=== PATIENT | male | born 1990 | race Caucasian/White ===

== ENCOUNTER 2022-04-27 10:37 | Emergency (ER) | payer OTHER ==
--- OUTSIDE RECORDS SUMMARY | 2022-04-27 10:41 | XMS REPORT | Continuity of Care Document ---
:1990 Author Organization [facility] t Address [address] [place] [address] Care Team Providers Name Role Phone Pcp, Patient Does Not Have A Primary Care Physician +[id number] MAY QUINTANILLA Attending Clinician Unavailable Randee JOHNS, Gina Morales Attending Clinician Unavailable May Quintanilla MD Attending Clinician Doctor Unassigned, [place] Attending Clinician Unavailable Elzbieta Alicea LVN Attending Clinician Binta Romero Attending Clinician Jd Garcia MD Attending Clinician Adelfo Cabrera MD Attending Clinician ADELFO CABRERA Attending Clinician Unavailable Adelfo Cabrera MD Admitting Clinician ADELFO CABRERA Admitting Clinician Unavailable Payers Payer Name Policy Type Policy Number Effective Date Expiration Date S vicenta [employer] PAID BY [id number] 2022 EMPLOYER - GENERIC 00:00:00 Problems Condition Condition Condition Status Onset Resolution Last Treating Co mments Source Name Details Category Date Date Treatment Clinician Date Left elbow Left elbow Disease Active 2021-05 U nivers pain pain 1-29 ity of 00:00: [place] [address] Medical Branch Decreased Decreased Disease Active 2021-05 Uni vers range of range of 1-29 [place] of [place] elbow [place] elbow 00 Me dical Branch Effusion Effusion Disease Active 2021-05 Unive rs of left of left 1-17 ity of elbow elbow 00:00: [place] 00 Medical Branch Obesity Obesity Disease Active 2021-05 Univers (BMI (BMI 1-17 ity of 30-39.9) 30-39.9) 00:00: [place] 00 Medical Branch Allergies, Adverse Reactions, Alerts Allergy Allergy Status Severity Reaction(s) Onset Inactive Treating Comm ents Source Name Type Date Date Clinician NO KNOWN Drug Active Univers ALLERGIE Class ity of S [place] [facility] Social History Social Habit Start Date Stop Date Quantity Comments Source Exposure to 2022-04-16 2022-04-26 Not sure [facility] SARS-CoV-2 (event) 00:00:00 08:59:00 Medica l Branch History SDOH Food 2022-04-18 2022-04-18 [facility] Medical Branch History SDOH Food 2022-04-18 2022-04-18 1 Univers ity [facility] Scarcity 00:00:00 00:00:00 Medical Branch History SDOH 2022-04-18 2022-04-18 2 [place] [facility] Transport Med 00:00:00 00:00:00 Medical Bra nch History SDOH 2022-04-18 2022-04-18 2 [facility] Transport Non-Med 00:00:00 00:00:00 Medical Branch Sex Assigned At [birth year] [facility] 00:00:00 00:00:00 Medical Branch Smoking Status Start Date Stop Date Source Tobacco [facility] consumption [facility] Medications Ordered Filled Start Stop Current Ordering Indication Dosage Frequency Signature Comments Components Source Medication Medication Date Date Medication? Clinician (SIG) Name Name esomeprazol 2021-05 Yes 2{capsu Take 2 U nivers e magnesium 1-19 le} capsules ity of (NEXIUM 11:41: by mouth. [place] 24HR ORAL) 37 Medical Branch meloxicam 2021-05 Yes 7.5mg Take 7.5 Uni vers 7.5 mg 1-19 mg by ity of tablet 11:41: mouth in [place] 37 the Medical morning. Branch esomeprazol 2021-05 Yes 2{capsu Take 2 U nivers e magnesium 1-19 le} capsules ity of (NEXIUM 11:41: by mouth. [place] 24HR ORAL) 37 Medical Branch meloxicam 2021-05 Yes 7.5mg Take 7.5 Uni vers 7.5 mg 1-19 mg by ity of tablet 11:41: mouth in [place] [address] the Medical morning. Branch esomeprazol 2021-05 Yes 2{capsu Take 2 U nivers e magnesium 1-19 le} capsules ity of (NEXIUM 11:41: by mouth. [place] 24HR ORAL) 37 [facility] Branch meloxicam 2021-05 Yes 7.5mg Take 7.5 Uni vers 7.5 mg 1-19 mg by ity of tablet 11:41: mouth in [place] [address] the Medical morning. Branch esomeprazol 2021-05 Yes 2{capsu Take 2 U nivers e magnesium 1-19 le} capsules ity of (NEXIUM 11:41: by mouth. [place] 24HR ORAL) 37 [facility] meloxicam 2021-05 Yes 7.5mg Take 7.5 Uni vers 7.5 mg 1-19 mg by ity of tablet 11:41: mouth in [place] [address] the Medical morning. Branch esomeprazol 2021-05 Yes 2{capsu Take 2 U nivers e magnesium 1-19 le} capsules ity of (NEXIUM 11:41: by mouth. [place] 24HR ORAL) 37 [facility] meloxicam 2021-05 Yes 7.5mg Take 7.5 Uni vers 7.5 mg 1-19 mg by ity of tablet 11:41: mouth in [place] [address] the Medical morning. Branch CEPHALEXIN 2021-05- No 1{capsu Take 1 U nivers ORAL 1-19 11-19 le} capsule by ity of 11:41: 00:00 mouth [place] 33 :00 every 12 Medical (twelve) Branch hours. methocarbam 2021-05 Yes [id number] 500mg Take 1 Univers oL 500 mg 1-19 [id number] tablet by ity of tablet 00:00: mouth 3 [place] 00 (three) Medical times Branch daily as needed (Muscle spasms). HYDROcodone 2021-05 Yes [id number] 1{tbl} Take 1 Un kimmie -acetaminop 1-19 tablet by ity of hen 5-325 00:00: mouth [place] mg tablet 00 every 6 Medical (six) Branch hours as needed for Pain (scale 4-6). Indication s: acute pain gabapentin 2021-05 Yes [id number] 300mg Take 1 Univers 300 mg 1-19 [id number] capsule by ity o f capsule 00:00: mouth 3 [place] 00 (three) Medical times Branch daily as needed for Pain (scale 4-6). methocarbam 2021-05 Yes [id number] 500mg Take 1 Univers oL 500 mg 1-19 [id number] tablet by ity of tablet 00:00: mouth 3 [place] 00 (three) Medical times Branch daily as needed (Muscle spasms). HYDROcodone 2021-05 Yes [id number] 1{tbl} Take 1 Un kimmie -acetaminop 1-19 tablet by ity of hen 5-325 00:00: mouth [place] mg tablet 00 every 6 Medical (six) Branch hours as needed for Pain (scale 4-6). Indication s: acute pain gabapentin 2021-05 Yes [id number] 300mg Take 1 Univers 300 mg 1-19 [id number] capsule by ity o f capsule 00:00: mouth 3 [place] 00 (three) Medical times Branch daily as needed for Pain (scale 4-6). methocarbam 2021-05 Yes [id number] 500mg Take 1 Univers oL 500 mg 1-19 [id number] tablet by ity of tablet 00:00: mouth 3 (three) Medical times Branch daily as needed (Muscle spasms). HYDROcodone 2021-05 Yes [id number] 1{tbl} Take 1 Un kimmie -acetaminop 1-19 tablet by ity of hen 5-325 00:00: mouth [place] mg tablet 00 every 6 Medical (six) Branch hours as needed for Pain (scale 4-6). Indication s: acute pain gabapentin 2021-05 Yes [id number] 300mg Take 1 Univers 300 mg 1-19 [id number] capsule by ity o f capsule 00:00: mouth 3 00 (three) Medical times Branch daily as needed for Pain (scale 4-6). methocarbam 2021-05 Yes [id number] 500mg Take 1 Univers oL 500 mg 1-19 [id number] tablet by ity of tablet 00:00: mouth 3 00 (three) Medical times Branch daily as needed (Muscle spasms). HYDROcodone 2021-05 Yes [id number] 1{tbl} Take 1 Un kimmie -acetaminop 1-19 tablet by ity of hen 5-325 00:00: mouth [place] mg tablet 00 every 6 Medical (six) Branch hours as needed for Pain (scale 4-6). Indication s: acute pain gabapentin 2021-05 Yes [id number] 300mg Take 1 Univers 300 mg 1-19 [id number] capsule by ity o f capsule 00:00: mouth 3 [place] 00 (three) Medical times Branch daily as needed for Pain (scale 4-6). methocarbam 2021-05 Yes [id number] 500mg Take 1 Univers oL 500 mg 1-19 [id number] tablet by ity of tablet 00:00: mouth 3 [place] 00 (three) Medical times Branch daily as needed (Muscle spasms). HYDROcodone 2021-05 Yes [id number] 1{tbl} Take 1 Un kimmie -acetaminop 1-19 tablet by ity of hen 5-325 00:00: mouth [place] mg tablet 00 every 6 Medical (six) Branch hours as needed for Pain (scale 4-6). Indication s: acute pain gabapentin 2021-05 Yes [id number] 300mg Take 1 Univers 300 mg 1-19 [id number] capsule by ity o f capsule 00:00: mouth 3 [place] 00 (three) Medical times Branch daily as needed for Pain (scale 4-6). methocarbam 2021-05 Yes 750mg 750 mg, Un kimmie oL -18 Oral, QID, ity of (ROBAXIN) 18:00: [place] tablet 750 00 on Sat Medical mg 04/13/22 Branch at 1200, Until Discontinu ed, Routine ketorolac 2021-05- Yes 30mg 30 mg, Unive rs (TORADOL) 06-13 Slow IV ity of injection 18:00: 17:59 Push, Q6H, [place] 30 mg 00 :00 8 doses, Medical First dose Branch on Sat04/13/22 at 1200, Last dose on 04/15/22 at 0600, Routine HYDROmorpho 2021-05- No 1mg 1 mg, Slow Univers ne 06-13 IV Push, ity of (DILAUDID) 17:45: 21:20 ONCE, 1 [place] as injection 1 00 :00 dose, On Medi mile mg Fri Branch 04/13/22 at 1145, Routine
Use approved by (Faculty): ADC PROVIDER gabapentin 2021-05 Yes 300mg 300 mg, Uni vers (NEURONTIN) 18 Oral, TID, it y of capsule 300 16:45: First dose [place] mg 00 on Fri Medical 04/13/22 Branch at 1045, Until Discontinu ed, Routine LORazepam 2021-05- No 1mg 1 mg, Slow U nivers (ATIVAN) 06-13 IV Push, ity of injection 1 16:41: 21:23 PRN, 1 [place] mg 03 :00 dose, Medical Starting Branch on 04/13/22 at 1041, Until Sat04/13/22 at 1523, Routine, Sedation, Please give prior to MRI HYDROcodone 2021-05 Yes 1{tbl} 1 tablet, Univers -acetaminop 06-13 Oral, ity of hen (NORCO) 16:35: Q6HPRN, [place] 10-325 mg 16 Starting Medica l tablet 1 on Fri Branch tablet 04/13/22 at 1035, Until Discontinu ed, Routine, Pain (scale 4-6) pantoprazol 2021-05 Yes 40mg 40 mg, Univ ers e 18 Oral, ity of (PROTONIX) 15:00: DAILY, [place] EC tablet 00 First dose Medi mile 40 mg on Fri Branch 04/13/22 at 0900, Until Discontinu ed, Routine allopurinoL 2021-05 No 100mg 100 mg, U nivers (ZYLOPRIM) 06-13 Oral, ity of tablet 100 15:00: 14:16 DAILY, [place] mg 00 :51 First dose Medical on Fri Branch 04/13/22 at 0900, Until Discontinu ed, Routine colchicine 2021-05- No .6mg 0.6 mg, Uni vers (COLCRYS) 06-13 Oral, ity of tablet 0.6 15:00: 14:16 DAILY, [place] mg 00 :51 First dose Medical on Fri Branch 04/13/22 at 0900, Until Discontinu ed, Routine HYDROcodone 2021-05- No 1{tbl} 1 tablet, Univers -acetaminop 06-13 Oral, ity of hen (NORCO) 08:00: 07:10 ONCE, 1 [place] 10-325 mg 00 :00 dose, On Medica l tablet 1 Sat Branch tablet 04/13/22 at 0200, Routine cefTRIAXone 2021-05- No 1000mg 1,000 mg, Univers (ROCEPHIN) 06-13 IV ity of 1,000 mg in 00:45: 14:16 [place], [place] NaCl 0.9% 00 :51 Q24H ABX, Medic al (NS) 50 mL 7 doses, Branc h MINI-BAG First dose on [place] 04/12/22 at 1845, Last dose on Sat04/18/22 at 1845, Administer over 30 Minutes, 50 mL
Reas on for Anti-Infec tive: Documented Infection< br>Documen fernanda Infection Site: Skin / Soft Tissue
Duration of Therapy: 7 days colchicine 2021-05- No 1.2mg 1.2 mg, Un kimmie (COLCRYS) 06-13 Oral, ity of tablet 1.2 00:45: 00:15 ONCE, 1 [place] mg 00 :00 dose, On Medical [place] Branch 04/12/22 at 1845, Routine ondansetron 2021-05 Yes 4mg 4 mg, Slow Univers (ZOFRAN 06-12 IV Push, ity of (PF)) 19:33: Q6HPRN, [place] injection 4 25 Starting Medi mile mg on [place] Branch 04/12/22 at 1333, Until Discontinu ed, Routine, Nausea and Vomiting (N/V) morpHINE (2 2021-05- No 4mg 4 mg, Slow Univers mg/mL) 06-12 IV Push, ity of injection 4 19:33: 19:32 Q4HPRN, [place] mg 22 :22 Starting Medical on [place] Branch 04/12/22 at 1333, Until Sat04/13/22 at 1332, Routine, Pain (scale 7-10) HYDROcodone 2021-05- No 1{tbl} 1 tablet, Univers -acetaminop 06-12 Oral, ity of hen (NORCO 19:33: 16:37 Q6HPRN, [place] as 5) 5-325 mg 20 :22 Starting Medi mile tablet 1 on [place] Branch tablet 04/12/22 at 1333, Until 04/13/22 at 1037, Routine, Pain (scale 4-6) acetaminoph 2021-05 Yes 650mg 650 mg, Un kimmie en 06-12 Oral, ity of (TYLENOL) 19:33: Q6HPRN, [place] tablet 650 13 Starting Medic al mg on [place] Branch 04/12/22 at 1333, Until Discontinu ed, Routine, Pain (scale 1-3), Temp > 38.5 C morpHINE (4 2021-05- No 4mg 4 mg, Slow Univers mg/mL) 06-12 IV Push, ity of injection 4 17:45: 17:38 ONCE, 1 [place] mg 00 :00 dose, On Medical [place] Branch 04/12/22 at 1145, STAT vancomycin 2021-05- No 15mg/kg 1,500 mg Univers (VANCOCIN) 06-12 (rounded ity of 1,500 mg in 16:15: 18:23 from 1,701 [place] NaCl 0.9% 00 :00 mg = 15 Medical (NS) 500 mL mg/kg [place] VIAL-MATE ?113.4 IV kg), IV piggyback Piggyback, ONCE, 1 dose, On [place] 04/12/22 at 1015, Administer over 90 Minutes, 500 mL
Reas on for Anti-Infec tive: Empiric Therapy for Suspected Infection< br>Empiric Therapy Site: Joint
D uration of therapy: 72 hours ceFAZolin 2021-05- No 1000mg 1,000 mg, Univers (ANCEF) 06-12 Slow IV ity of injection 15:45: 16:25 [place], [place] 1,000 mg 00 :00 ONCE, 1 Medical dose, On Branch [place] 04/12/22 at 0945, STAT
Re ason for Anti-Infec tive: Empiric Therapy for Suspected Infection< br>Empiric Therapy Site: Joint
D uration of therapy: 72 hours Vital Signs Vital Name Observation Time Observation Value Comments Source Systolic blood 2022-04-14 16:15:00 130 mm[Hg] Univer sity of pressure [facility] Diastolic blood 2022-04-14 16:15:00 66 mm[Hg] [facility] Heart rate 2022-04-14 16:15:00 74 /min [facility] Oxygen saturation in 2022-04-14 16:15:00 97 /min [facility] Arterial blood by [facility] Pulse oximetry Branch Body temperature 2022-04-14 14:00:00 36.94 [place] [facility] Respiratory rate 2022-04-14 10:00:00 18 /min [facility] Body height 2022-04-12 19:36:00 182.9 cm [facility] Body weight 2022-04-12 19:36:00 113.399 kg [facility] BMI 2022-04-12 19:36:00 33.91 kg/m2 [facility] Procedures Procedure Date / Time Performing Clinician Source Performed MISC - NON-LEGAL REC 2022-04-26 06:01:00 Doctor Unassigned, No [facility] HEPATIC FUNCTION PANEL 2022-04-14 10:55:00 [facility] ([id number]) ([facility],BU/BC,ALT,AST,ALK PHOS) BASIC METABOLIC PANEL 2022-04-14 10:55:00 [facility] (NA, K, CL, CO2, Medical Branch GLUCOSE, BUN, CREATININE, CA) CBC WITH DIFF 2022-04-14 10:55:00 [facility] BASIC METABOLIC PANEL 2022-04-13 11:30:00 [facility] (NA, K, CL, CO2, Medical Branch GLUCOSE, BUN, CREATININE, CA) CBC WITH DIFF 2022-04-13 11:30:00 [facility] MR ELBOW LEFT WO 2022-04-13 10:30:00 [facility] CONTRAST [facility] BLOOD CULTURE SCREEN 2022-04-12 16:20:00 Jd Garcia [facility] URIC ACID 2022-04-12 16:20:00 May Quintanilla [facility] C-REACTIVE PROTEIN 2022-04-12 16:20:00 Jd Garcia [facility] BASIC METABOLIC PANEL 2022-04-12 16:20:00 Jd Garcia [facility] (NA, K, CL, CO2, Medical Branch GLUCOSE, BUN, CREATININE, CA) SEDIMENTATION RATE 2022-04-12 16:20:00 Jd Garcia [facility] CBC WITH DIFF 2022-04-12 16:20:00 Jd Garcia [facility] LACTIC ACID WHOLE BLOOD 2022-04-12 16:19:00 Jd Garcia [facility] XR ELBOW <3 VW LEFT 2022-04-12 16:06:11 Jd Garcia [facility] NOTICE OF PRIVACY 2022-04-12 14:59:41 Doctor Unassigned, No [facility] PRACTICES Name [facility] CONSENT/REFUSAL FOR 2022-04-12 14:58:47 Doctor Unassigned, No [facility] DIAGNOSIS AND TREATMENT Name [facility] Encounters Start End Encounter Admission Attending Care Care Encounter Source Date/Time Date/Time Type Type Clinicians Facility Department ID 2022-04-26 2022-04-26 Outpatient R WHIT [facility] [id number] [facility] 09:30:00 10:32:34 MAY itanand [facility] 2022-04-26 2022-04-26 Ancillary Gina Jeff [facility] 1.2.84 0.114 [id number] Univers 09:30:00 10:32:34 Visit May Quintanilla 350.1.13.10 ity of [place]2.[place]2.[place] PROF[place] [id number] [place] dical NAL [address] [place] BU[place]ING 2022-04-26 2022-04-26 Orders Doctor RILEY 1.2.840.114 [id number] Univers 00:00:00 00:00:00 Only Unassigned, HECTOR 350.1.13.10 ity of [place] [facility] 4.2.7.2.686 [place] as [id number] [address] 2022-04-23 2022-04-23 Ancillary RandeeGina Andrew [facility] 1.2.84 0.114 [id number] Univers 13:45:00 14:48:36 Visit May Quintanilla 350.1.13.10 ity [place] [id number] [place] dical NAL [address] [place] BUILDING 2022-04-23 2022-04-23 Outpatient R WHIT [facility] [id number] Univers 13:45:00 14:48:36 MAY [facility] 2022-04-16 2022-04-16 Transition MONO [place] 1.2.840.114 [id number] Univers 00:00:00 00:00:00 of Care Elzbieta ADAMS 350.1.13.10 ity of [place] [id number] [facility] 403 Branch 2022-04-12 2022-04-14 Hospital Binta Caballero [facility] 1.2.840.11 [id number] Univers 09:12:00 11:39:00 Encounter Jd Garcia 350.1. 13.10 ity of [place] Cabrera 4.2.7.2.686 [facility] [id number] [facility] 080 Branch 2022-04-12 2022-04-14 Inpatient X DEANDRE [facility] [id number] Univers 09:12:00 11:39:00 ADELFO [facility] Results Test Description Test Time Test Comments Results Result Comments Source C-REACTIVE PROTEIN 2022-04-13 16:56:52 Test Item Value Reference Range Interpretation Comme nts CRP (test code = 6008574425) 4.1 mg/dL See_Comment H [Automated message] The system which generated this result transmitted ref erence range: <=0.8. The refe rence range was not used to int erpret this result as arcelia l/abnormal. Lab Interpretation (test code Abnormal = 93098-3) [facility] [id number] 23:19:19 Test Item Value Reference Range Interpretation Comments URIC ACID (test code = [id number]) 7.5 mg/dL 3.6-8.0 Lab Interpretation (test code = Normal 05654-7) [facility] [id number] 17:17:17 Test Item Value Reference Range Interpretation Comments ESR (test code = See_Comment H [Automated message] 28971-7) The system Amitive generated this result transmitted ref erence range: 0 - 10 m m/HR. The reference r yaakov was not used to interpret this result as normal/abnor mal. Lab Interpretation (test Abnormal code = 69501-7) [facility] METABOLIC PANEL (NA, K, CL, CO2, GLUCOSE, BUN, CREATININE, CA)2022-04-12 16:59:20 Test Item Value Reference Range Interpretation Comments NA (test code = 142 mmol/L 135-145 0075668464) K (test code = 4.3 mmol/L 3.5-5.0 7459148637) CL (test code = 106 mmol/L 98-108 5677710793) CO2 TOTAL (test code 27 mmol/L 23-31 = 5530276401) AGAP (test code = 2-16 2767418948) BUN (test code = 18 mg/dL 7-23 5794009813) GLUCOSE (test code = 89 mg/dL 70-110 1208599847) CREATININE (test code 0.97 mg/dL 0.60-1.25 = 0370352781) CALCIUM (test code = 9.5 mg/dL 8.6-10.6 0369290897) eGFR (test code = mL/min/1.73m2 2328854337) VERENICE (test code = VERENICE) Association of Glomerular Filtration Rate (GFR) and Staging of Kidney Disease* + + +- +| GFR (mL/min/1.73 m2) ?| With Kidney Damage ?| ?Without Kidney Damage+ ------+ ----+ ------+| ?>90 ?| ?Stage one ?| ? Normal ?+ -+ + -+| ?60-89 ?| ?Stage two ?| ? Decreased GFR ? + + +- +| ?30-59 ?| ?Stage three ?| ? Stage three ? + + +- +| ?15-29 ?| ?Stage four ? | ? Stage four ?+ -+ + -+| ?<15 (or dialysis) ? ?| ?Stage five ? | ? Stage five ?+ -+ + -+ *Each stage assumes the associated GFR level has been in effect for at least three months. ?Stages 1 to 5, with or without kidney disease, indicate chronic kidney disease. Notes: Determination of stages one and two (with eGFR >59mL/min/1.73 m2) requires estimation of kidney damage for at least three months as defined by structural or functional abnormalities of the kidney, manifested by either:Pathological abnormalities or Markers of kidney damage (including abnormalities in the composition of the blood or urine or abnormalities in imaging tests). [facility] WITH [id number] 16:37:00 Test Item Value Reference Range Interpretation Comments WBC (test code = See_Comment [Automated 8611-2) message] The sy stem which generated this result transmitted reference range : 4.20 - 10.70 10*3/?L. The reference range was not used to interpret this result as normal/abnormal . RBC (test code = See_Comment [Automated 862-8) message] The sy stem which generated this result transmitted reference range : 4.26 - 5.52 10*6/?L. The reference range was not used to interpret this result as normal/abnormal . HGB (test code = 14.7 g/dL 12.2-16.4 718-7) HCT (test code = 42.9 % 38.4-49.3 4544-3) MCV (test code = 83.5 fL 81.7-95.6 787-2) MCH (test code = 28.6 pg 26.1-32.7 785-6) MCHC (test code = 34.3 g/dL 31.2-35.0 786-4) RDW-SD (test code = 37.5 fL 38.5-51.6 L 32594-9) RDW-CV (test code = 12.3 % 12.1-15.4 788-0) PLT (test code = See_Comment [Automated 708-3) message] The sy stem which generated this result transmitted reference range : 150 - 328 10*3/ ?L. The reference r yaakov was not used to interpret this result as normal/abnormal . MPV (test code = 9.8 fL 9.8-13.0 70700-8) NRBC/100 WBC (test See_Comment [Automat ed code = 6337089841) message] The system which generated this result transmitted reference range : 0.0 - 10.0 /100 WBCs. The refer ence range was not u sed to interpret th is result as normal/abnormal . NRBC x10^3 (test code See_Comment [Auto mated = 5499713280) message] The s ystem which generated this result transmitted reference range : 10*3/?L. The reference range was not used to interpret this result as normal/abnormal . GRAN MAT (NEUT) % 54.6 % (test code = 770-8) IMM GRAN % (test code 0.40 % = 5746841614) LYMPH % (test code = 34.1 % 736-9) MONO % (test code = 9.4 % 5905-5) EOS % (test code = 1.0 % 713-8) BASO % (test code = 0.5 % 706-2) GRAN MAT x10^3(ANC) 4.35 10*3/uL 1.99-6.95 (test code = 0936444310) IMM GRAN x10^3 (test 0.03 10*3/uL 0.00-0.06 code = 1905407311) LYMPH x10^3 (test code 2.72 10*3/uL 1.09-3.23 = 731-0) MONO x10^3 (test code 0.75 10*3/uL 0.36-1.02 = 742-7) EOS x10^3 (test code = 0.08 10*3/uL 0.06-0.53 711-2) BASO x10^3 (test code 0.04 10*3/uL 0.01-0.09 = 704-7) Lab Interpretation Abnormal (test code = 48406-3) [facility]"
[2022-04-27] MEDS ORDERED: NA CHLORIDE 0.9% 1,000 ML ONE (11:36)
[2022-04-27] MEDS ORDERED: KETOROLAC 30 MG/ML INJ ONE (11:36)
[2022-04-27] MEDS ORDERED: ONDANSETRON 4 MG/2 ML VIAL ONE (11:36)
[2022-04-27] MEDS ORDERED: MORPHINE 4 MG/ML SYR ONE (11:36)
[2022-04-27] MEDS ORDERED: FENTANYL CITR 100 MCG/2 ML ONE (11:54)
[2022-04-27 12:01] LABS: Absolute Lymphocytes (CBC) 1.4 K/uL (0.7-4.9); Hematocrit 45.7 % (39.6-49.0); Lymphocytes % 11.3 % (15.3-44.8); MCV 83.6 fL (80-100); RBC Red Blood Cell Count 5.47 M/uL (4.33-5.43)
--- NOTE | 2022-04-27 12:05 | RAD REPORT ---
[facility] - [facility]27/[facility] 11:51 am CLINICAL HISTORY: flank pain COMPARISON: No comparisons TECHNIQUE: CT of the abdomen and pelvis was performed. All CT scans are performed using dose optimization technique as appropriate and may include automated exposure control or mA/KV adjustment according to patient size. FINDINGS: Lower chest: No acute abnormality. Liver: No acute abnormality or suspicious lesions. Biliary: No biliary ductal dilatation. Stomach: No significant focal abnormality. Duodenum: No significant focal abnormality. Pancreas: No significant abnormality. Spleen: No significant abnormality. Adrenal: No suspicious lesions. Kidney/ureter: Mild right-sided hydroureteronephrosis secondary to a 3 mm stone at the right UVJ. Zaid ateral small renal calculi present. Retroperitoneum: No retroperitoneal adenopathy. Vascular: No aneurysm. Bowel: No significant focal abnormality. Normal appendix. Peritoneum: No ascites or free air. Bladder: Grossly unremarkable. Reproductive: No adnexal masses. Bones: No acute fracture. Other: n/a IMPRESSION: Mild right-sided hydroureteronephrosis secondary to a 3 millimeters stone at the right U VJ.
[2022-04-27] MEDS ORDERED: TAMSULOSIN 0.4 MG SR CAP ONE (12:14)
[2022-04-27] MEDS ORDERED: MAGNESIUM SULFATE 1 gm IVPB 1 GM/100 ML BAG IV ONE (12:14)
[2022-04-27 12:16] LABS: Potassium 3.7 mmol/L (3.5-5.1)
[2022-04-27 12:30] LABS: Urine Blood 2+ (Negative); Urine Glucose Negative (Negative); Urine Protein Negative (Negative); Urine Specific Gravity >=1.030 (1.005-1.030); Urine pH 5.5 (5.0-7.0)
[2022-04-27 12:56] LABS: Urine Mucus 1+ /HPF (None Seen)
--- NOTE | 2022-04-27 13:10 | EDPHYS ---
Physician Documentation [facility] Name: Agustín Cloud Age: 31 yrs Sex: Male : 1990 Arrival Date: 04/27/2022 Time: 10:40 Bed 8 Private MD: ED Physician Ranjit Mclean HPI: 04/27 14:19 This 31 yrs old Male presents to ER via Ambulatory with complaints of Abdominal Pain, kb Urinary Problem. 14:24 The patient complains of pain in the right flank. The pain radiates to the right lower kb quadrant. Onset: The symptoms/episode began/occurred this morning, at 09:00. Modifying factors: The symptoms are alleviated by nothing. the symptoms are aggravated by palpation/percussion. Associated signs and symptoms: The patient has no apparent associated signs or symptoms. Severity of pain: At its worst the pain was moderate in the emergency department the pain is unchanged. The patient has not experienced similar symptoms in the past. The patient has not recently seen a physician. Pt reports right flank pain that radiates to right groin with difficulty urinating that began at 0900. . Historical: - Allergies: 11:29 No Known Allergies; kb3 - PMHx: 11:29 None; kb3 - PSHx: 11:29 None; kb3 - Immunization history:: Adult Immunizations up to date, Client reports having NOT received the Covid vaccine. Last tetanus immunization: up to date. - Social history:: Smoking status: Patient denies any tobacco usage or history of. ROS: 14:18 Constitutional: Negative for fever, chills, and weight loss. kb 14:18 : Positive for urinary symptoms, flank pain, difficulty urinating. 14:18 All other systems are negative. Exam: 14:18 Constitutional: This is a well developed, well nourished patient who is awake, alert, kb and in no acute distress. Head/Face: Normocephalic, atraumatic. ENT: Moist Mucous membranes Cardiovascular: Regular rate and rhythm with a normal S1 and S2. No gallops, murmurs, or rubs. No pulse deficits. Respiratory: Respirations even and unlabored. No increased work of breathing. Talking in full sentences Skin: Warm, dry with normal turgor. Normal color. MS/ Extremity: Pulses equal, no cyanosis. Neurovascular intact. Full, normal range of motion. Neuro: Awake and alert, GCS 15, oriented to person, place, time, and situation. Moves all extremities. Normal gait. Psych: Awake, alert, with orientation to person, place and time. Behavior, mood, and affect are within normal limits. 14:18 Abdomen/GI: Inspection: abdomen appears normal, Bowel sounds: normal, Palpation: soft, in all quadrants, moderate abdominal tenderness, in the right lower quadrant. 14:18 Back: CVA tenderness, that is moderate, is noted on the right. Vital Signs: 11:27 BP 141 / 103; Pulse 99; Resp 20; Temp 98.1; Pulse Ox 100% ; Weight 113.4 kg; Height 6 kb3 ft. 0 in. (182.88 cm); Pain 10/; 12:01 BP 133 / 85; Pulse 85; Resp 16; Pulse Ox 99% ; bp 11:27 Body Mass Index 33.91 (113.40 kg, 182.88 cm) kb3 MDM: 11:28 Patient medically screened. kb 13:08 Data reviewed: vital signs, nurses notes. Data interpreted: Pulse oximetry: on room air kb is 99 %. Interpretation: normal. Counseling: I had a detailed discussion with the patient and/or guardian regarding: the historical points, exam findings, and any diagnostic results supporting the discharge/admit diagnosis, lab results, radiology results, the need for outpatient follow up, a urologist, to return to the emergency department if symptoms worsen or persist or if there are any questions or concerns that arise at home. ED course: Pt passed stone while in ER. Symptoms have resolved. 04/27 11:31 Order name: Urine Microscopic Only; Complete Time: 12:57 kb 04/27 11:31 Order name: CBC with Diff; Complete Time: 12:10 kb 04/27 11:31 Order name: Basic Metabolic Panel; Complete Time: 12:17 kb 04/27 11:31 Order name: CT Stone Protocol; Complete Time: 12:10 kb 04/27 12:30 Order name: Urine Dipstick-Ancillary; Complete Time: 12:45 EDMS 04/27 11:31 Order name: Urine Dipstick-Ancillary (obtain specimen); Complete Time: 13:36 kb 04/27 11:31 Order name: IV Start; Complete Time: 11:58 kb Administered Medications: 11:45 Drug: NS 0.9% 1000 ml Route: IV; Rate: 1000 ml; Site: right antecubital; bp 11:45 Drug: morphine 4 mg Route: IVP; Infused Over: 4 mins; Site: right antecubital; bp 12:23 Follow up: Response: No adverse reaction; No change in condition bp 11:45 Drug: Ketorolac 15 mg Route: IVP; Site: right antecubital; bp 12:23 Follow up: Response: No adverse reaction bp 11:45 Drug: Zofran (Ondansetron) 4 mg Route: IVP; Site: right antecubital; bp 12:23 Follow up: Response: No adverse reaction bp 11:57 Drug: fentaNYL (PF) 100 mcg Route: IVP; Site: right antecubital; bp 12:24 Follow up: Response: Pain is decreased bp 12:15 Drug: Flomax (tamsulosin) 0.4 mg Route: PO; bp 12:15 Drug: Magnesium Sulfate 1 grams Route: IVPB; Infused Over: 1 hrs; Site: right bp antecubital; Disposition: 18:53 Co-signature as Attending Physician, Ranjit Mclean MD. rn Disposition Summary: 04/27/22 13:09 Discharge Ordered Location: Home kb Condition: Stable kb Diagnosis - Calculus of ureter kb Followup: kb - With: Emergency Department - When: As needed - Reason: Worsening of condition Followup: kb - With: Private Physician - When: 2 - 3 days - Reason: Recheck today's complaints, Continuance of care, Re-evaluation by your physician Discharge Instructions: - Discharge Summary Sheet kb - Kidney Stones, [id number] kb - Dietary Guidelines to Help Prevent Kidney Stones kb Forms: - Medication Reconciliation Form kb - Thank You Letter kb - Antibiotic Education kb - Prescription Opioid Use kb Signatures: Dispatcher [employer] Xuan Rodriguez, VIDEO SYSTEM REPAIRER-C VIDEO SYSTEM REPAIRER-Ckb Ranjit Mclean MD MD rn Peltier, Brian RN RN Suri Preciado, YISSEL RN kb3
--- NOTE | 2022-04-27 13:10 | ER ---
Nurse's Notes [facility] Name: Agustín Cloud Age: 31 yrs Sex: Male : 1990 Arrival Date: 04/27/2022 Time: 10:40 Bed 8 Private MD: Diagnosis: Calculus of ureter Presentation: 04/27 11:27 Chief complaint: Patient states: RLQ abdominal pain that radiates into right groin. kb3 Coronavirus screen: Vaccine status: Patient reports being unvaccinated. Client denies travel out of the [place] in the last 14 days. Ebola Screen: Patient negative for fever greater than or equal to 101.5 degrees Fahrenheit, and additional compatible Ebola Virus Disease symptoms Patient denies exposure to infectious person. Patient denies travel to an Ebola-affected area in the 21 days before illness onset. Initial Sepsis Screen: Does the patient meet any 2 criteria? No. Patient's initial sepsis screen is negative. Does the patient have a suspected source of infection? No. Patient's initial sepsis screen is negative. Risk Assessment: Do you want to hurt yourself or someone else? Patient reports no desire to harm self or others. Onset of symptoms was April 27, 2022 at 09:00. 11:27 Method Of Arrival: Ambulatory 3 11:27 Acuity: KAREN 3 kb3 Triage Assessment: 11:29 General: Appears distressed, uncomfortable, Behavior is anxious, restless. Pain: kb3 Complains of pain in right lower quadrant Pain radiates to right femoral area Pain currently is 10 out of 10 on a pain scale. GI: Reports lower abdominal pain, nausea, vomiting. 11:29 : Reports burning with urination, inability to void, pain urgency, urinary frequency. kb3 Historical: - Allergies: 11:29 No Known Allergies; kb3 - PMHx: 11:29 None; kb3 - PSHx: 11:29 None; kb3 - Immunization history:: Adult Immunizations up to date, Client reports having NOT received the Covid vaccine. Last tetanus immunization: up to date. - Social history:: Smoking status: Patient denies any tobacco usage or history of. Screenin:30 Abuse screen: Denies threats or abuse. Denies injuries from another. Nutritional bp screening: No deficits noted. Tuberculosis screening: No symptoms or risk factors identified. Fall Risk None identified. Assessment: 11:30 General: SEE TRIAGE NOTE. bp 11:59 Reassessment: No changes from previously documented assessment. Patient and/or family bp updated on plan of care and expected duration. Pain level reassessed. PT RETURNED FROM CT. Vital Signs: 11:27 BP 141 / 103; Pulse 99; Resp 20; Temp 98.1; Pulse Ox 100% ; Weight 113.4 kg; Height 6 kb3 ft. 0 in. (182.88 cm); Pain 10; 12:01 BP 133 / 85; Pulse 85; Resp 16; Pulse Ox 99% ; bp 11:27 Body Mass Index 33.91 (113.40 kg, 182.88 cm) kb3 ED Course: 10:40 Patient arrived in ED. mr 10:47 Xuan Dodge FNP-C [facility] kb 10:47 Ranjit Mclean MD is Attending Physician. kb 11:29 Triage completed. kb3 11:29 Arm band placed on right wrist. kb3 11:30 Patient has correct armband on for positive identification. Bed in low position. Call bp light in reach. Side rails up X2. Pulse ox on. NIBP on. 11:32 Alan Silva, RN is Primary Nurse. bp 11:45 Inserted saline lock: 20 gauge in right antecubital area, using aseptic technique. bp Blood collected. 11:52 CT Stone Protocol In Process Unspecified. EDMS 13:54 No provider procedures requiring assistance completed. IV discontinued, intact, ss bleeding controlled, No redness/swelling at site. Pressure dressing applied. Administered Medications: 11:45 Drug: NS 0.9% 1000 ml Route: IV; Rate: 1000 ml; Site: right antecubital; bp 11:45 Drug: morphine 4 mg Route: IVP; Infused Over: 4 mins; Site: right antecubital; bp 12:23 Follow up: Response: No adverse reaction; No change in condition bp 11:45 Drug: Ketorolac 15 mg Route: IVP; Site: right antecubital; bp 12:23 Follow up: Response: No adverse reaction bp 11:45 Drug: Zofran (Ondansetron) 4 mg Route: IVP; Site: right antecubital; bp 12:23 Follow up: Response: No adverse reaction bp 11:57 Drug: fentaNYL (PF) 100 mcg Route: IVP; Site: right antecubital; bp 12:24 Follow up: Response: Pain is decreased bp 12:15 Drug: Flomax (tamsulosin) 0.4 mg Route: PO; bp 12:15 Drug: Magnesium Sulfate 1 grams Route: IVPB; Infused Over: 1 hrs; Site: right bp antecubital; Outcome: 13:09 Discharge ordered by MD. carbone 13:54 Discharged to home ambulatory. 13:54 Condition: good 13:54 Discharge instructions given to patient, Instructed on discharge instructions, follow up and referral plans. Demonstrated understanding of instructions, follow-up care. 13:55 Patient left the ED. ss Signatures: Dispatcher [employer] EDMS Xuan Dodge, [employer] BUSINESS ETHICS PROFESSOR-Bibiana Spears mr Kell Loya RN RN ss Peltier, Brian, YISSEL RN Suri Preciado, YISSEL RN kb3
[2022-04-27 14:18] VITALS: TEMP 98.1
[2022-04-27 14:28] VITALS: BP 133/85; O2SAT 99
== END 2022-04-27 13:55 | disposition home or self-care (01) ==
LOC: ER 10:37
DX: N20.1 Calculus of ureter (principal)
CPT/HCPCS: 85025; 80048; 36415; 76377; 74176; 96375; 96374; 99284; J3010; J3475; J7030; J2405; 81003; 81015